=== PATIENT | male | born 1945 | race Caucasian/White ===

== ENCOUNTER 2020-02-26 11:58 | Emergency (ER) | payer OTHER, SELFPAY ==
[2020-02-26 11:59] VITALS: BP 133/60; PULSE 59; RESP 16; TEMP 35.9; O2SAT 97; BMI 24.3
--- NOTE | 2020-02-26 12:36 | ED.VIS.GEN ---
History of Present Illness Chief Complaint: Abd Pain Informant: Patient Narrative: 74-year-old male presenting with intermittent epigastric pain as well as concern for black stools at home. This is been over about a week. He states that currently his stool is brown again. He has a history of acid reflux and is concerned for an ulcer given his symptoms. He has previously been on ranitidine however his primary care physician took him off of this and never replaced it. Patient denies any nausea or vomiting. States he feels mildly lightheaded at times. He has not had fever or chills. No cough, chest pain, shortness of breath. No urinary complaints. - Past Medical History (1) CAD (coronary artery disease) Status: Chronic (2) COPD (chronic obstructive pulmonary disease) Status: Chronic (3) HLD (hyperlipidemia) Status: Chronic (4) HTN (hypertension) Status: Chronic (5) S/P CABG x 5 Status: Chronic Past Medical History - Allergies and Home Meds Allergies/Adverse Reactions: Allergies No Known Allergies Allergy (Verified 02/26/20 11:59) Primary Care Physician: [place] [Primary Care Provider] - Surgical History: - - CABG x5, inguinal hernia repair BL (x 3 total). Smoking Status: Current every day smoker - Family History Maternal Family History: Reports: No pertinent history Paternal Family History: Reports: No pertinent history Review of Systems General: Reports: - - Mild lightheadedness. Denies: Chills, Fever, Sweats Eyes: Denies: Visual changes - bilaterally, Diplopia ENT: Denies: Rhinorrhea, Sore throat Cardiovascular: Denies: Chest pain, Palpitations Respiratory: Denies: Dyspnea, Cough, Dyspnea on exertion Gastrointestinal: Reports: Abdominal pain, Melena. Denies: Nausea, Hematochezia Musculoskeletal: Denies: Back pain, Extremity Pain Skin: Denies: Rash, Wounds Neurological: Denies: Headache, Weakness, Numbness Psych: Denies: Depression, Anxiety Physical Exam Vital Signs/Narrative: Vital Signs Temp Pulse Resp BP Pulse Ox 02/26/20 11:59 96.6 F L 59 L 16 133/60 H 97 Inital Vital Signs reviewed: Yes General: Well nourished, No Acute Distress Head: Normocephalic, Atraumatic Eyes: Perrl, EOMI. Negative for: Pale conjunctiva ENT: Moist mucous membranes, No rhinorrhea Cardiovascular: Regular rate, Regular rhythm Respiratory: No distress, CTA bilaterally Abdomen: Soft, Nondistended, Tender - Mild epigastric tenderness. Rectal: - - Brown stool noted.. Negative for: Tenderness Back: Nontender, Normal Inspection Extremities: Nontender, No edema Skin: Normal color, No rash. Negative for: Cyanosis, Diaphoresis, Jaundice, Pallor Neurological: Alert, Oriented x3, Cranial nerves II-XII grossly intact Psychological: Normal affect, Normal Mood Diagnostic/Tx/Re-eval Clinical Impression(s) from Imaging Studies Abdomen/Pelvis CT 02/26/20 12:45 IMPRESSION: Findings suggestive of colitis involving the ascending colon and transverse colon as well as the sigmoid colon with evidence of sigmoid diverticulosis. Electronically Signed: Chris Dewitt, at 14:09 EST , Service support , Laboratory Data 02/26/20 02/26/20 12:40 12:40 WBC 6.1 RBC 4.62 Hgb 14.4 Hct 42.5 MCV 92.0 MCH 31.2 MCHC 33.9 RDW Std Deviation 42.9 RDW Coeff of Pato 12.8 Plt Count 181 MPV 10.7 Immature Gran % (Auto) 0.500 Neut % (Auto) 52.0 Lymph % (Auto) 30.0 [place]er % (Auto) 10.8 H Eos % (Auto) 5.4 H Baso % (Auto) 1.3 H Absolute Neuts (auto) 3.2 Absolute Lymphs (auto) 1.83 Nucleated RBC % 0 Sodium 139 Potassium 4.0 Chloride 104 Carbon Dioxide 28.0 Anion Gap 7 BUN 27 H Creatinine 0.99 Estim Creat Clear Calc 65.46 Est GFR (MDRD) Af Amer 95 Est GFR (MDRD) Non-Af 78 BUN/Creatinine Ratio 27.2 H Glucose 90 Calcium 8.7 Total Bilirubin 0.60 AST 20 ALT 31 Alkaline Phosphatase 82 Total Protein 7.2 Albumin 3.8 Globulin 3.4 Albumin/Globulin Ratio 1.1 Lipase 40 L - Medical Decision Making 74-year-old male presenting with some mild abdominal pain as well as concern for blood in his stool given he has dark black stools. Patient's blood work is unremarkable with exception of some mild dehydration. He has no leukocytosis. Hemoccult negative. Hemoglobin is stable. Patient had CT abdomen pelvis which shows colitis although with normal lab work I do not believe he needs antibiotics. Patient comfortable with this plan and will discharge home to follow-up with his PCP. Patient stable for discharge at this time. Impression: 1. History of black stools 2. Abdominal pain 3. Colitis ED Disposition - Plan for ED Patient: Disposition: Home or Assisted Living Instructions: ED Gastroenteritis, Noninfectious [facility] [facility] [Primary Care Provider] -
--- NOTE | 2020-02-26 12:45 | CT_ITS ---
STUDY: CT ABDOMEN AND PELVIS WITH CONTRAST REASON FOR EXAM: Male, 74 years old. ABD PAIN, BLACK STOOL X 1 WK RADIATION DOSAGE (If Supplied By Facility): CTDIvol = ( 16.7 ) mGy, DLP = ( 683.75 ) mGycm TECHNIQUE: Transaxial images were obtained from the dome of the diaphragm to the symphysis pubis without oral contrast. IV 100mL Isovue-300 was administered. Sagittal and coronal images were reconstructed. Individualized dose optimization techniques were used for this CT. COMPARISON: None. FINDINGS: The visualized lung bases are unremarkable. Prosthetic mitral valve. Normal liver. Normal gallbladder and extrahepatic biliary system. Normal spleen. Normal pancreas. Normal bilateral adrenal glands. Normal right kidney. There is a 1.9 cm cyst in the medial portion of the left kidney. There is a small hiatal hernia. Normal small intestine. There is evidence of thickening of the ascending colon and transverse colon with increased markings in the surrounding peritoneal fat. Colitis should be ruled out. There is also evidence of sigmoid diverticulosis with a mild degree of colitis involving the sigmoid colon. The appendix is visualized and appears normal. There is diffuse atherosclerotic calcification of the abdominal aorta, without a demonstrated aneurysm. Normal inferior vena cava. Normal retroperitoneum. Normal urinary bladder. There is evidence of a prior TURP. Prior repair of a right inguinal hernia. Loss of height of the T11, T12, L1 and L2 vertebrae. CT/Abdomen/Pelvis W IV Cont ONLY IMPRESSION: Findings suggestive of colitis involving the ascending colon and transverse colon as well as the sigmoid colon with evidence of sigmoid diverticulosis. Electronically Signed: Chris Dewitt, at 14:09 EST , Service support ,
[2020-02-26 13:00] LABS: Absolute Lymphocyte Count 1.83 X10^3/uL (0.83-4.51); Absolute Neutrophil Count 3.2 X10^3/uL (2.0-7.7); Basophil# 0.08 X10^3/uL; Basophil% 1.3 % (0-1); Eosinophil# 0.33 X10^3/uL; Eosinophils% 5.4 % (0-5); Hematocrit 42.5 % (40-54); Hemoglobin 14.4 g/dL (13.0-16.5); Lymphocyte # 1.83 X10^3/ul (4.0); Mean Corp Hgb Conc 33.9 g/dL (32-36); Mean Corpuscular Hgb 31.2 pg (27.0-32.0); Mean Platelet Vol. 10.7 fl (6.2-12.0); Monocyte# 0.66 X10^3/uL; Monocyte% 10.8 % (0-10); NRBC Flagged by Analyzer 0 % (0-5); Neutrophil # 3.18 X10^3/uL (2.7-7.7); Platelet Count 181 K/mm3 (150-450); RBC Distribution Width CV 12.8 % (11.6-14.6); RBC Distribution Width SD 42.9 fl (35.1-43.9); Red Blood Count 4.62 M/mm3 (4.6-6.2); White Blood Count 6.1 K/mm3 (4.4-11.0)
[2020-02-26 13:15] LABS: ALB/GLOB Ratio 1.1 RATIO (0.9-2.4); AST(SGOT) 20 U/L (15-37); Alanine Aminotransfer ALT/SGPT 31 U/L (16-61); Albumin, Serum 3.8 g/dL (3.2-5.0); Alkaline Phosphatase 82 U/L (45-117); Anion Gap 7 (5-15); BUN 27 mg/dL (7-18); BUN/Creat Ratio 27.2 RATIO (10-20); Calcium,Total 8.7 mg/dL (8.5-10.1); Chloride 104 mmol/L (98-107); Creatinine, Serum 0.99 mg/dL (0.70-1.30); EST Glomerular Filtration Rate 78 mL/min (>60); Est Glom Filt Rate - Afr Amer 95 mL/min (>60); Estimated Creatinine Clearance 65.46 ml/min; Globulin 3.4 g/dL (2.2-4.2); Glucose 90 mg/dL (74-106); Lipase 40 U/L (73-393); Protein, Total 7.2 g/dL (6.4-8.2); Sodium Level 139 mmol/L (136-145)
[2020-02-26 14:00] VITALS: BP 140/65; PULSE 71; RESP 18; O2SAT 98
== END 2020-02-26 15:08 | disposition home or self-care (01) ==
PROVIDERS: Emergency Provider Student in an Organized Health Care Education/Training Program
DX: K52.9 Noninfective gastroenteritis and colitis, unspecified (principal); E86.0 Dehydration; I25.10 Atherosclerotic heart disease of native coronary artery without angina pectoris; J44.9 Chronic obstructive pulmonary disease, unspecified; I10 Essential (primary) hypertension; E78.5 Hyperlipidemia, unspecified; K21.9 Gastro-esophageal reflux disease without esophagitis; F17.200 Nicotine dependence, unspecified, uncomplicated; Z79.82 Long term (current) use of aspirin; Z79.899 Other long term (current) drug therapy; Z95.1 Presence of aortocoronary bypass graft
CPT/HCPCS: 74177; 80053; 82274; 83690; 85025; 99283; Q9967; A4216

== ENCOUNTER 2021-09-10 11:26 | Emergency (ER) | payer OTHER, SELFPAY ==
[2021-09-10] VITALS (9 sets, daily range): BP systolic 146–187; BP diastolic 72–83; PULSE 67–123; RESP 18–25; TEMP 36.6; O2SAT 94–99; BMI 24.5
--- NOTE | 2021-09-10 11:30 | EKG12_ITS ---
Test Reason : FALL Blood Pressure : / mmHG Vent. Rate : 113 BPM Atrial Rate : 113 BPM P-R Int : 136 ms QRS Dur : 078 ms QT Int : 320 ms P-R-T Axes : 067 070 074 degrees QTc Int : 438 ms Sinus tachycardia with Premature ventricular complexes or Fusion complexes Nonspecific ST abnormality Abnormal ECG Confirmed by CRISTIANE COPPOLA, MODESTA ([id number]), department editor PRUDENCE BARRON ([id number]) on 09/11/2021 2:18:37 PM Referred By: RAMBO Confirmed By:MODESTA SAUER MD
--- NOTE | 2021-09-10 11:30 | RAD_ITS ---
STUDY: X-RAY - PELVIS REASON FOR EXAM: Male, 76 years old. Trauma -- Pelvis 2 views TECHNIQUE: One view of the pelvis was obtained. COMPARISON: None. FINDINGS: There is a non-specific bowel gas pattern. There is evidence of a prior right inguinal hernia repair. A catheter is seen overlying the mid inferior pelvis. There is narrowing with cortical sclerosis and osteophyte formation of the sacroiliac joint consistent with degenerative osteoarthritic changes. Normal visualized bilateral superior and inferior pubic rami. Normal pubic symphysis. Normal ischial tuberosities. Normal visualized right femoral head. Normal right acetabulum. There is mild articular joint space narrowing of the right hip. Normal visualized left femoral head. Normal left acetabulum. There is mild articular joint space narrowing of the left hip. RAD/Pelvis 1 or 2 Views IMPRESSION: Degenerative changes. No acute abnormality is seen. Electronically Signed: Chris Dewitt MD at 13:06 EDT ,
--- NOTE | 2021-09-10 11:30 | CT_ITS ---
STUDY: CT BRAIN WITHOUT CONTRAST REASON FOR EXAM: Male, 76 years old. Head injury due to a fall. RADIATION DOSAGE (If Supplied By Facility): CTDIvol = ( 44.99 ) mGy, DLP = ( 1727.20 ) mGycm TECHNIQUE: Transaxial CT imaging of the brain was performed without administration of intravenous contrast material. Individualized dose optimization techniques were used for this CT. COMPARISON: Comparison is made with prior study dated 08/16/2015. FINDINGS: Normal soft tissue structures. Diffuse scalp hematoma overlying the right temporoparietal occipital bones. There is evidence of a moderate-sized acute right subdural hematoma overlying the right frontoparietal lobes. There is evidence of subarachnoid hemorrhage as well as the subdural of the cerebellar tentorium and the cerebral falx. There is evidence of edematous changes in the right cerebellar hemisphere. There is mass effect with shift of the midline from right to left measuring 4.9 mm. Normal basal ganglia and thalami. Normal brainstem. Normal cerebellum. 9.4 mm mucosal polyp in the inferior medial aspect of the left maxillary sinus. CT/Brain/Head without Contrast IMPRESSION: Acute right subdural hematoma with evidence of subarachnoid hemorrhage as well as subdural hematoma involving the cerebral falx and the superior cerebellar tentorium. There is shift of the midline from right to left of 4.9 mm. There is evidence of a edema involving the right cerebral hemisphere. N.B. : The above Results were Read Back by Chris Dewitt MD to Jane Mancilla and understanding confirmed on 09/10/2021 12:35:44 (ET). Electronically Signed: Chris Dewitt MD at 12:36 EDT ,
--- NOTE | 2021-09-10 11:30 | CT_ITS ---
STUDY: CT CERVICAL SPINE WITHOUT CONTRAST REASON FOR EXAM: Male, 76 years old. Trauma RADIATION DOSAGE (If Supplied By Facility): CTDIvol = ( 25.39 ) mGy, DLP = ( 673.77 ) mGycm TECHNIQUE: High resolution transaxial imaging was performed without contrast material. Sagittal and coronal images were reconstructed. Individualized dose optimization techniques were used for this CT. COMPARISON: None FINDINGS: Patient is known to have subdural hematoma of the cerebellar tentorium. Normal craniovertebral junction. Normal anterior atlantoaxial articulation. Normal odontoid process. Normal cervical lordosis. Normal vertebral bodies and posterior osseous elements. C2-3: Normal endplates. Normal disc height and morphology. Normal central canal and intervertebral neuroforamina. C3-4: Mild degree of disc space narrowing. Facet joint osteoarthritis and hypertrophy. Uncovertebral arthrosis. Moderate degree of bilateral neural foraminal stenosis. C4-5: Mild degree of disc space narrowing. Spondylosis. Facet joint osteoarthritis and hypertrophy worse on the right side. No significant stenosis seen. C5-6: Moderate degree of disc space narrowing. Uncovertebral arthrosis causing bilateral neural foraminal stenosis. C6-7: Moderate degree of disc space narrowing. Spondylosis. Uncovertebral arthrosis. Bilateral neural foraminal stenosis. C7-T1: Normal endplates. Normal disc height and morphology. Normal central canal and intervertebral neuroforamina. Calcification of the carotid bifurcations bilaterally. CT/Spine Cervical without Contras IMPRESSION: Multilevel degenerative changes, as described above. Electronically Signed: Chris Dewitt MD at 12:40 EDT ,
--- NOTE | 2021-09-10 11:31 | EX.ED.GENINJ ---
HPI History of Present Illness Chief Complaint: Trauma Informant: family and EMS Limited: uncooperative Narrative Narrative: Patient is a 76-year-old male with history of coronary artery disease status post CABG x5, COPD, hypertension, chronic back pain and hyperlipidemia presenting after a head injury. Apparently patient was mowing the lawn when he collapsed. He hit his head on the sidewalk per EMS/'s report. Patient was initially unresponsive when EMS arrived however he became acutely combative. Patient was given 2 mg IM Haldol in order to transport him. Patient continues to call out help me does not respond to any questions. Patient is noted to have a right facial droop. No other complaints at this time. Tetanus Immunization: Unknown [facility] Medical History unable to obtain Home Medications aspirin 81 mg chewable tablet 81 mg PO DAILY 08/16/15 [History Last Taken 08/16/15] metoprolol tartrate 25 mg tablet 25 mg PO BID 08/16/15 [History Last Taken Unknown] Omeprazole [Prilosec] 40 mg PO DAILY 08/17/15 [History Last Taken Unknown] rosuvastatin 40 mg tablet (Crestor) 40 mg PO QHS 08/17/15 [History Last Taken Unknown] Finasteride 5 mg PO DAILY 02/26/20 [History Last Taken Unknown] Tamsulosin Hcl 0.4 mg PO DAILY 02/26/20 [History Last Taken Unknown] Triamcinolone 0.1% Cream [Kenalog] 1 applic TP PRN PRN Rash/Topical Irritation 02/26/20 [History Last Taken Unknown] amlodipine 5 mg tablet 5 mg PO DAILY 02/26/20 [History Last Taken Unknown] cetirizine 10 mg capsule 10 mg PO BID 02/26/20 [History Last Taken Unknown] cholecalciferol (vitamin D3) 50 mcg (2,000 unit) tablet 2,000 unit PO DAILY 02/26/20 [History Last Taken Unknown] docusate sodium 100 mg capsule 100 mg PO BID 02/26/20 [History Last Taken Unknown] lutein 20 mg tablet 20 mg PO DAILY 02/26/20 [History Last Taken Unknown] quercetin dihydrate (bulk) 100 % powder 2 gm PO BID 02/26/20 [History Last Taken Unknown] testosterone 1 % (25 mg/2.5 gram) transdermal gel packet 2.5 gm transdermal DAILY 02/26/20 [History Last Taken Unknown] trospium 20 mg tablet 20 mg PO BID 02/26/20 [History Last Taken Unknown] Allergy/AdvReac Type Severity Reaction Status Date / Time No Known Allergies Allergy Verified 09/10/21 11:34 Social History Smoking Status: Former smoker ROS ROS ED Review of Systems ROS Unobtainable: due to mental status EXAM Physical Exam Const Vital Signs: 09/10/21 11:27 09/10/21 11:30 09/10/21 11:34 Temperature 98 F Temperature Source Temporal Pulse Rate 109 H 114 H Respiratory Rate 25 H Respiratory Effort Normal Blood Pressure Blood Pressure Mean Pulse Ox Oxygen Delivery Method Oxygen Flow Rate (L/min) 09/10/21 11:47 09/10/21 11:49 09/10/21 12:09 Temperature Temperature Source Pulse Rate 123 H 93 Respiratory Rate 25 H 20 H Respiratory Effort Blood Pressure 157/75 H 155/83 H Blood Pressure Mean 102 107 Pulse Ox 98 94 Oxygen Delivery Method Room Air Nasal Cannula Oxygen Flow Rate (L/min) 4 Positive well nourished, well developed and unkempt Constitutional Narrative: crying out help me General Appearance ED: unkempt and well developed HEENT Reports TM's clear HEENT Narrative: Posterior scalp/occipital cephalhematoma with associated abrasion trauma Nose: Negative for septum abnormal Tympanic Membrane ED: Yes TM's clear Eyes PERRL and EOMs intact bilaterally Neck Neck Narrative: Immobilized in c-collar Chest Wall inspection of chest normal and palpation of chest normal Resp normal respiratory effort and clear to auscultation bilaterally Cardio regular rhythm and no murmurs GI normal to inspection, nondistended, normoactive bowel sounds and non-tender GI Narrative: Ventral hernia present, soft, reducible Back/Spine normal to inspection and no thoracic nor lumbar tenderness Extremity normal to inspection and full ROM General Extremety ED: Negative for deformity, edema or tenderness General Extremity: Negative for deformity or edema Neuro moves all extremities Neuro Narrative: Right facial droop present [place] Coma Scale: document GCS findings Spontaneous Localizes to Pain Inappropriate 12 Sensorium / Orientation: alert and orientation impaired; Negative for oriented to person, oriented to place or oriented to time Motor Exam: Negative for muscle tone abnormal Psych Appearance: unkempt Attitude: agitated Skin Skin Narrative: Abrasion to occipital scalp PROC Procedures Intubations Intubation Method: orotracheal (8-0 using glide scope. Path success.) Intubation Verification: Positive color change and Bilateral breath sounds confirmed Intubation Complications: no complications Procedural Sedation intubation: Consent Signed: No Sedation medication: Etomidate Dose: 20 Route: IV ASA Classification: E Comment:: 80 mg IV rocuronium administered. Verbal consent obtained from family however intubation done emergently. MDM MDM MDM Narrative Medical decision making narrative: Patient is evaluated for head injury and now altered mental state. Patient received Haldol IM in route. I will be given a dose of Versed and fentanyl for further pain/delirium control. This time patient protecting his airway and will try to avoid intubation however I do not want to delay CT of his head either. Patient is given [address] reviewed immediately by myself shows skull fracture as well as what appears to be a right subdural with subarachnoid as well as shift. Discussed with family as patient is still agitated will intubate for airway protection. Will arrange transfer to [facility] ER for further trauma evaluation per request of family. See procedure note for intubation. Patient is hypertensive after intubation and is given labetalol. Chest x-ray interpreted by myself as well as radiology shows proper position of ET tube. Case is discussed with Dr. Cheatham, ER physician at [facility] who is given report. Lab Data Attestation: I reviewed the patient's lab results. Labs: Laboratory Results - last 24 hr 09/10/21 09/10/21 09/10/21 12:00 12:00 12:00 WBC 8.4 RBC 4.40 L Hgb 14.2 Hct 42.0 MCV 95.5 H MCH 32.3 H MCHC 33.8 RDW Std Deviation 46.0 H RDW Coeff of Pato 13.1 Plt Count 231 MPV 11.7 Immature Gran % (Auto) 1.000 H Neut % (Auto) 48.8 Lymph % (Auto) 32.8 [place] % (Auto) 9.6 Eos % (Auto) 6.5 H Baso % (Auto) 1.3 H Absolute Neuts (auto) 4.1 Absolute Lymphs (auto) 2.76 Nucleated RBC % 0 PT 15.5 H INR 1.3 APTT 40.0 H Sodium 142 Potassium 3.3 L Chloride 106 Carbon Dioxide 24.0 Anion Gap 12 BUN 19 H Creatinine 1.36 H Estim Creat Clear Calc 50.72 Est GFR (MDRD) Af Amer 66 Est GFR (MDRD) Non-Af 54 L BUN/Creatinine Ratio 14.0 Glucose 167 H Calcium 9.2 Rhythm Strip Rhythm Strip: Sinus Tach Rate: 113 Ectopy: PVC(s) EKG Initial EKG: Attestation: I personally reviewed and interpreted this EKG as follows: Interpretation: Sinus Tachycardia Comments: Sinus tachycardia at a rate of 113 with PVCs Normal axis Normal intervals Nonspecific ST segment changes Critical Care Time Critical Care Time: Yes Critical care time (excluding procedures): 30-74 minutes (45), Discussing w/Patient &/or Family/Deputy Clerk Of Superior Court, Arranging Admission or Transfer and Performing Direct Patient Care at Bedside Discharge Plan Triage Chief Complaint: Trauma ED Provider: Jane Mancilla Dx/Rx/DC Orders Clinical Impression: Subarachnoid hemorrhage, Traumatic subdural hemorrhage with loss of consciousness of 30 minutes or less, initial encounter, Closed skull fracture, AMS (altered mental status), Collapse Prescriptions: No Action aspirin 81 MG Tab.Chew 81 mg PO DAILY Label Comments: heart health metoprolol tartrate 25 MG tablet 25 mg PO BID Label Comments: blood pressure rosuvastatin [Crestor] 40 MG tablet 40 mg PO QHS Label Comments: CHOLESTEROL Omeprazole [Prilosec] 40 MG capsule 40 mg PO DAILY Label Comments: antacid amlodipine 5 MG tablet 5 mg PO DAILY docusate sodium 100 MG capsule 100 mg PO BID testosterone 2.5 GM gel in packet 2.5 gm TD DAILY trospium 20 MG tablet 20 mg PO BID cholecalciferol (vitamin D3) 50 MCG tablet 2,000 unit PO DAILY cetirizine 10 MG capsule 10 mg PO BID lutein 20 MG tablet 20 mg PO DAILY quercetin dihydrate (bulk) 1 GM powder 2 gm PO BID Finasteride 5 MG tablet 5 mg PO DAILY Tamsulosin Hcl 0.4 MG capsule 0.4 mg PO DAILY Triamcinolone 0.1% Cream [Kenalog] 1 APPLIC Tube 1 applic TP PRN PRN (Reason: Rash/Topical Irritation) [facility]errals[place] [facility] [Primary Care Provider] - Disposition Disposition: Acute Care Hospital
[2021-09-10] MEDS: fentaNYL 100 MCG/2 ML Ampul 50 MCG IV (11:39)
[2021-09-10] MEDS: Midazolam 2 MG/2 ML Syringe 1 MG IV (11:39)
[2021-09-10] MEDS: Ziprasidone IM 20 MG/ML VIAL 10 MG IM (12:02)
--- NOTE | 2021-09-10 12:11 | ED.RN ---
DAUGHTER HAD CONCERNS OF PT BEING INTUBATED, I DONT LIKE THAT IDEA. PROVIDER SPOKE WITH DAUGHTER. DAUGHTER UNDERSTANDS WHY PT WILL BE INTUBATED.
--- NOTE | 2021-09-10 12:17 | RAD_ITS ---
STUDY: X-RAY - ABDOMEN/PELVIS REASON FOR EXAM: Male, 76 years old. NG placement -- NG/OG Verification TECHNIQUE: Single AP view of the abdomen / pelvis. COMPARISON: None. FINDINGS: The tip of the nasogastric tube is in the fundal portion of the stomach. There is an unremarkable bowel gas pattern. RAD/Abdomen Single View IMPRESSION: The tip of the nasogastric tube is in the fundal portion of the stomach. Electronically Signed: Chris Dewitt MD at 13:00 EDT ,
[2021-09-10 12:21] LABS: Absolute Lymphocyte Count 2.76 X10^3/uL (0.83-4.51); Absolute Neutrophil Count 4.1 X10^3/uL (2.0-7.7); Basophil# 0.11 X10^3/uL; Basophil% 1.3 % (0-1); Eosinophil# 0.55 X10^3/uL; Eosinophils% 6.5 % (0-5); Hemoglobin 14.2 g/dL (13.0-16.5); Lymphocyte # 2.76 X10^3/ul (0.83-4.51); Lymphocyte % 32.8 % (19-41); Mean Corp Hgb Conc 33.8 g/dL (32-36); Mean Corpuscular Hgb 32.3 pg (27.0-32.0); Mean Corpuscular Volume 95.5 fL (80-94); Mean Platelet Vol. 11.7 fl (6.2-12.0); Monocyte# 0.81 X10^3/uL; Monocyte% 9.6 % (0-10); NRBC Flagged by Analyzer 0 % (0-5); Neutrophil # 4.11 X10^3/uL (2.7-7.7); Neutrophil % 48.8 % (47-70); Platelet Count 231 K/mm3 (150-450); RBC Distribution Width CV 13.1 % (11.6-14.6); White Blood Count 8.4 K/mm3 (4.4-11.0)
[2021-09-10] MEDS: Etomidate 20 MG/10 ML Vial IV (12:23)
[2021-09-10] MEDS: Rocuronium Bromide 50 MG/5 ML Vial 80 MG IV (12:24)
[2021-09-10 12:28] LABS: International Normalized Ratio 1.3; Prothrombin Time (Protime)PT. 15.5 SECONDS (11.7-14.9)
[2021-09-10] MEDS: Propofol 10MG/Ml 1,000 MG/100 ML Bottle 4.9 MG CONT INF (12:28)
[2021-09-10] MEDS: 0.9% Normal Saline 1,000 ML 999 ML IV (12:30)
[2021-09-10 12:32] LABS: Anion Gap 12 (5-15); BUN 19 mg/dL (7-18); Calcium,Total 9.2 mg/dL (8.5-10.1); Chloride 106 mmol/L (98-107); Creatinine, Serum 1.36 mg/dL (0.70-1.30); EST Glomerular Filtration Rate 54 mL/min (>60); Est Glom Filt Rate - Afr Amer 66 mL/min (>60); Estimated Creatinine Clearance 50.72 ml/min; Glucose 167 mg/dL (74-106); Potassium 3.3 mmol/L (3.5-5.1); Sodium Level 142 mmol/L (136-145)
--- NOTE | 2021-09-10 12:35 | RAD_ITS ---
STUDY: X-RAY CHEST REASON FOR EXAM: Male, 76 years old. Trauma TECHNIQUE: Single AP portable view of the chest. COMPARISON: Comparison is made with prior examination dated 08/16/2015. FINDINGS: An endotracheal tube is in situ. The tip is at 3.4 cm proximal to the yuly. A nasogastric tube is seen with the tip below the right hemidiaphragm. EKG electrodes are seen. Mild increased markings at the left lung base suggestive of early atelectasis and/or scarring. There is no demonstrated pleural abnormality. Sternal cerclage wires and vascular clips are present from a prior sternotomy and coronary artery bypass graft procedure (CABG). There is evidence of a mitral valve replacement. Normal mediastinum and benjamín. Normal visualized pulmonary arteries. There is atherosclerotic calcification of the aortic arch with tortuosity. There are degenerative changes of the visualized thoracic spine. Normal visualized ribs, clavicles, and shoulders. There is no demonstrated abnormality of the visualized soft tissue structures of the upper abdomen. RAD/Chest 1 View (Portable) IMPRESSION: Mild increased markings at the left lung base suggestive of linear atelectasis and/or scarring. Electronically Signed: Chris Dewitt MD at 13:05 EDT ,
[2021-09-10] MEDS: Labetalol (Prefilled) 20 MG/4 ML 10 MG IV (12:39)
--- NOTE | 2021-09-10 12:54 | ED.RN ---
LIFE FLIGHT ARRIVED APPROX [id number]
[2021-09-10 12:55] LABS: Alcohol, Blood (Medical)-Serum < 3.0 mg/dL
[2021-09-10 13:05] LABS: Bacteria 0 SEEN /hpf (None Seen); Mucous, Urine 0 SEEN /hpf (<or=2+)
[2021-09-10 13:22] LABS: Color, Urine Yellow (Yellow); Glucose, Dipstick 50 mg/dl (Normal); Ketone-Dipstick 5 mg/dl (Negative); Leukocyte Esterase-Dipstick 25 /ul (Negative); Nitrite-Dipstick Negative (Negative); Occult Blood-Urine 250 /ul (Negative); Protein-Dipstick 100 mg/dl (Negative); Specific Gravity, Urine 1.025 (1.002-1.030); Urine Bilirubin Dipstick Negative (Negative); Urine Clarity Clear (Clear); Urine Urobilinogen Normal (Normal)
[2021-09-10 13:24] LABS: Amphetamine Urine VISTA NEGATIVE (<1000 ng/mL); Barbiturate Urine VISTA NEGATIVE (< 200 ng/mL); Benzodiazepine Urine VISTA NEGATIVE (< 200 ng/mL); Cocaine Urine VISTA NEGATIVE (< 300 ng/mL); Ecstacy Urine VISTA NEGATIVE (< 500 ng/mL); Methadone Urine VISTA NEGATIVE (< 300 ng/mL); PCP Urine VISTA NEGATIVE (< 25 ng/mL); THC Urine VISTA POSITIVE (< 50 ng/mL); Vista UDS pH Range 5
[2021-09-10 13:34] LABS: Amorphous Sediment 2+; Red Blood Cells-Urine 5-10 SEEN /hpf (0-5); Squamous Epithelial Cells - UA 0-5 SEEN /hpf (0-5); White Blood Cells 0-5 SEEN /hpf (0-5)
--- NOTE | 2021-09-10 13:56 | CM.ED ---
SW Note Referral Source: vending machine operatorfilm and video editor Reason: Trauma SW met with patient's daughter and patient's ex , who resides in the home. Provided emotional support. SW also provided daughter and ex with address and directions to [facility]. Serena BROWN
== END 2021-09-10 13:03 | disposition short-term general hospital (02) ==
PROVIDERS: Emergency Provider Emergency Medicine; Visit Provider Emergency Medicine
DX: S06.6X1A Traumatic subarachnoid hemorrhage with loss of consciousness of 30 minutes or less, initial encounter (principal); S06.5X1A Traumatic subdural hemorrhage with loss of consciousness of 30 minutes or less, initial encounter; S02.91XA Unspecified fracture of skull, initial encounter for closed fracture; W01.198A Fall on same level from slipping, tripping and stumbling with subsequent striking against other object, initial encounter; Y93.H9 Activity, other involving exterior property and land maintenance, building and construction; Y92.9 Unspecified place or not applicable; J44.9 Chronic obstructive pulmonary disease, unspecified; I25.10 Atherosclerotic heart disease of native coronary artery without angina pectoris; I10 Essential (primary) hypertension; E78.5 Hyperlipidemia, unspecified; M54.9 Dorsalgia, unspecified; G89.29 Other chronic pain; Z79.82 Long term (current) use of aspirin; Z87.891 Personal history of nicotine dependence; Z95.1 Presence of aortocoronary bypass graft
CPT/HCPCS: 31500; 70450; 71045; 72125; 72170; 74018; 80048; 80307; 81001; 82077; 85025; 85610; 85730; 93005; 96365; 96372; 96375; 99251; 99285; A4216; G0463; J3486